=== PATIENT | male | born 1990 | race Caucasian/White ===

== ENCOUNTER 2020-09-23 14:38 | Emergency (ER) | payer MEDICAID, SELFPAY ==
[~2020-09-23] VITALS: Ht 175.3 cm; Wt 108.9 kg
[2020-09-23 14:51] VITALS: BP 163/97
--- NOTE | 2020-09-23 14:53 | NUR ---
Patient in tent for covid precaution
--- NOTE | 2020-09-23 14:55 | NUR ---
30 y/o male from home c/o diarrhea and generalized body aches since yesterday. Denies abd pain/vomiting. States 7/10 constant aching. Pt states he had + covid contact at work recently. Denies cough/SOB. VSS medhx: denies
--- NOTE | 2020-09-23 15:27 | NUR ---
Covid swab collected and walked to lab.
[2020-09-23 15:40] VITALS: BP 163/97
--- NOTE | 2020-09-23 15:40 | NUR ---
Patient discharged with v/s stable. Written and verbal after care instructions given and explained. Patient alert, oriented and verbalized understanding of instructions. Ambulatory with steady gait. All questions addressed prior to discharge. ID band removed. Patient advised to follow up with PMD. Rx of Ibuprofen 400mg given. Patient educated on indication of medication including possible reaction and side effects. Opportunity to ask questions provided and answered.
== END 2020-09-23 15:40 | disposition home or self-care (01) ==
LOC: MED 14:38
DX: R19.7 Diarrhea, unspecified (principal); M79.10 Myalgia, unspecified site; R50.9 Fever, unspecified; R03.0 Elevated blood-pressure reading, without diagnosis of hypertension; Z20.828 Contact with and (suspected) exposure to other viral communicable diseases
CPT/HCPCS: 99283; U0003

== ENCOUNTER 2021-05-25 02:32 | Emergency (ER) | payer MEDICAID, SELFPAY ==
[~2021-05-25] VITALS: Ht 175.3 cm; Wt 113.4 kg
--- NOTE | 2021-05-25 02:32 | NUR ---
PT KINZA NUNO, PREBOOK. TAKEN TO CHAIR
[2021-05-25 02:38] VITALS: BP 151/94
[2021-05-25] MEDS ORDERED: NACL 0.9% 1,000 ML IV ONE (03:30)
--- NOTE | 2021-05-25 03:30 | NUR ---
MOVED TO BED #11
[2021-05-25 04:16] LABS: ALBUMIN 4.7 g/dL (3.4-5.0); ANION GAP 19.8 (8-16); CARBON DIOXIDE 22.4 mmol/L (21-32); CREATININE 1.1 mg/dL (0.6-1.3); POTASSIUM 4.2 mmol/L (3.5-5.1); TOTAL BILIRUBIN 0.7 mg/dL (0.0-1.0)
--- NOTE | 2021-05-25 04:35 | NUR ---
ua sent to lab
[2021-05-25 04:42] VITALS: BP 144/71
--- NOTE | 2021-05-25 04:50 | NUR ---
remians on cardiac specialist hr now [address] pending ua and uds. denies cp. remains in custody pd at bedside
[2021-05-25 05:09] LABS: WHITE BLOOD COUNT (AUTO) 10.3 K/uL (4.8-10.8)
[2021-05-25 05:10] LABS: BASOPHILS % (AUTO) 0.3 % (0.0-2.0); EOSINOPHILS % (AUTO) 0.2 % (0.0-4.0); HEMATOCRIT 52.1 % (36-52); HEMOGLOBIN 18.1 g/dL (12.0-18.0); LYMPHOCYTES % (AUTO) 14.6 % (20.5-51.1); MEAN CORPUSCULAR HEMOGLOBIN 32 pg (27-31); MEAN CORPUSCULAR HGB CONC 35 g/dL (33-37); MEAN CORPUSCULAR VOLUME 92.4 fL (80-94); MONOCYTES % (AUTO) 5.4 % (1.7-9.3); NEUTROPHILS # (AUTO) 8.2 K/uL (1.8-7.7); NEUTROPHILS % (AUTO) 79.5 % (42.2-75.2); PLATELET COUNT (AUTO) 154 K/uL (140-450); RED BLOOD CELL COUNT(AUTO) 5.64 MIL/uL (4.20-6.10)
[2021-05-25 05:11] LABS: LYMPHOCYTES # (AUTO) 1.5 K/uL (2.0-11.5); MONOCYTES # (AUTO) 0.6 K/uL (0.8-1.0)
[2021-05-25 05:16] LABS: BARBITURATE, URINE NEGATIVE ng/ml (NEG <=200); BENZODIAZEPINE, URINE NEGATIVE ng/mL (NEG <=200); CANNABINOID, URINE POSITIVE ng/mL (NEG <=50); COCAINE, URINE NEGATIVE ng/mL (NEG <=300); OPIATE, URINE NEGATIVE ng/mL (NEG <=2000); PHENCYCLIDINE SCREEN,URINE NEGATIVE ng/mL (NEG <=25)
--- NOTE | 2021-05-25 05:30 | NUR ---
IV removed, catheter intact and site benign. Applied folded 4x4 gauze and tape to stop bleeding.
--- NOTE | 2021-05-25 05:35 | NUR ---
[facility]. PATIENT EXAMINED BY DR. LOPEZ. PATIENT MEDICALLY CLEARED AND RELEASED IN CUSTODY IN STABLE CONDITION. ORIGINAL PRE-BOOK FORM GIVEN TO OFFICER RICARDA, #[id number].
--- NOTE | 2021-06-04 19:17 | NUR ---
LATE ENTRY- 0.9% NS IVF STARTED AT 0357 AND COMPLETED AT 0530
== END 2021-05-25 05:35 ==
LOC: MED 02:32
DX: R00.0 Tachycardia, unspecified (principal); F41.9 Anxiety disorder, unspecified; I10 Essential (primary) hypertension; F12.90 Cannabis use, unspecified, uncomplicated
CPT/HCPCS: 36415; 71045; 80053; 80305; 84484; 85025; 93005; 96360; 96361; 99285; G0482; J7030